=== PATIENT | female | born 1940 | race Caucasian/White ===

== ENCOUNTER 2021-03-10 16:37 | Inpatient (IN) | payer OTHER ==
[2021-03-10] MEDS ORDERED: PIPERACILLIN/TAZOB 3.375 GM 3.375 GM in DEXTROSE 5%-WATER - 50 ML IVPB ONE (18:23)
[2021-03-10] MEDS ORDERED: VANCOMYCIN 1 GM in D5W (PRE-DOCKED) 1,000 MG/250 ML IVPB ONE (18:23)
[2021-03-10] MEDS ORDERED: PIPERACILLIN/TAZOB 3.375 GM 3.375 GM/50 ML BAG IVPB ONE (18:29)
[2021-03-10 19:38] LABS: BASO % 1.2 % (0-2.0); EOS % 1.9 % (0-4.5); HEMATOCRIT 29.2 % (32.4-45.2); HEMOGLOBIN 9.3 GM/dL (10.7-15.3); LYMPH % 9.5 % (8-40); MCH 26.5 pg (25.7-33.7); MCHC 31.8 g/dl (32.0-36.0); MEAN CELL VOLUME 83.3 fl (80-96); MEAN PLT VOLUME 8.4 fl (7.5-11.1); MONO % 7.3 % (3.8-10.2); NEUT % 80.1 % (42.8-82.8); PLATELET COUNT 292 10^3/uL (134-434); RBC 3.51 M/mm3 (3.60-5.2); RDW 14.6 % (11.6-15.6); WHITE BLOOD COUNT 11.6 K/mm3 (4.0-10.0)
[2021-03-10 19:46] LABS: INR 1.21 (0.83-1.09)
[2021-03-10 19:49] LABS: ACTIVATED PTT 28.9 SECONDS (25.2-36.5)
[2021-03-10 21:30] LABS: ALBUMIN 3.4 g/dl (3.4-5.0); CALCIUM 9.4 mg/dL (8.5-10.1)
[2021-03-10 21:34] LABS: CREATININE 2.2 mg/dL (0.55-1.3)
[2021-03-10 21:35] LABS: BILIRUBIN,TOTAL 0.4 mg/dL (0.2-1)
[2021-03-10 21:41] LABS: BLOOD UREA NITROGEN 61.7 mg/dL (7-18)
[2021-03-11] MEDS ORDERED: HEPARIN NA (PORCINE) 5,000 UNITS/ML 1ML VIAL ONE ×2 (06:32→15:06)
[2021-03-11] MEDS ORDERED: PIPERACILLIN/TAZOB 2.25 GM 2.25 GM/50 ML BAG IVPB ONE ×3 (06:32→18:12)
[2021-03-11] MEDS ORDERED: CARBIDOPA/LEVODOPA 25/100 TABLET (FP) ONE ×2 (06:32→15:06)
[2021-03-11] MEDS: PIPERACILLIN/TAZOB 2.25 GM 2.25 GM in DEXTROSE 5%-WATER - 50 ML IVPB SCH ×3 (06:52→18:24)
[2021-03-11] MEDS: HEPARIN NA (PORCINE) 5,000 UNITS/ML 1ML VIAL SQ SCH ×2 (06:52→15:10)
[2021-03-11] MEDS: CARBIDOPA/LEVODOPA 25/100 TABLET (FP) PO SCH ×2 (06:52→15:10)
[2021-03-11] MEDS: INSULIN SLIDING SCALE (NOVOLOG) 1 VIAL SQ SCH ×3 (07:26→16:46)
[2021-03-11] MEDS ORDERED: TORSEMIDE 20 MG TABLET (FP) PO SCH (10:00)
[2021-03-11] MEDS ORDERED: TAMSULOSIN HCL 0.4 MG CAP ONE (10:53)
[2021-03-11] MEDS ORDERED: POLYETHYLENE GLYCOL (HEALTHYLAX) 3350 17 GM PACKET ONE (10:53)
[2021-03-11] MEDS: POLYETHYLENE GLYCOL (HEALTHYLAX) 3350 17 GM PACKET PO SCH (10:55)
[2021-03-11] MEDS: TAMSULOSIN HCL 0.4 MG CAP PO SCH (10:55)
[2021-03-11] MEDS: MEMANTINE HCL 10 MG TABLET (FP) PO SCH (10:55)
[2021-03-11] MEDS: SODIUM CHLORIDE 1,000 ML IV SCH (15:10)
[2021-03-11 16:46] LABS: URINE APPEARANCE CLEAR; URINE BILIRUBIN NEGATIVE (NEGATIVE); URINE COLOR YELLOW; URINE GLUCOSE (UA) NEGATIVE (NEGATIVE); URINE KETONE NEGATIVE (NEGATIVE); URINE LEUK ESTERASE NEGATIVE (NEGATIVE); URINE NITRITE NEGATIVE (NEGATIVE); URINE PROTEIN NEGATIVE (NEGATIVE); URINE UROBILINOGEN 0.2 mg/dL (0.2-1.0)
[2021-03-11] MEDS ORDERED: VANCOMYCIN 1 GM in D5W (PRE-DOCKED) 1,000 MG/250 ML IVPB SCH (20:00)
[2021-03-11] MEDS ORDERED: VANCOMYCIN 1 GRAM (PRE-DOCKED) 1,000 MG/250 ML BAG IVPB SCH (20:00)
[2021-03-12] MEDS: PIPERACILLIN/TAZOB 2.25 GM 2.25 GM in DEXTROSE 5%-WATER - 50 ML IVPB SCH ×4 (02:13→17:41)
[2021-03-12] MEDS: INSULIN SLIDING SCALE (NOVOLOG) 1 VIAL SQ SCH ×5 (02:13→22:20)
[2021-03-12] MEDS: SODIUM CHLORIDE 1,000 ML IV SCH (02:14)
[2021-03-12] MEDS ORDERED: PIPERACILLIN/TAZOBACTAM 2.25 GM VIAL IVPB ONE ×3 (02:41→17:39)
[2021-03-12] MEDS ORDERED: DEXTROSE 5%-WATER - 50 ML IVPB ONE ×3 (02:41→17:39)
[2021-03-12] MEDS: TAMSULOSIN HCL 0.4 MG CAP PO SCH ×3 (03:23→22:12)
[2021-03-12] MEDS: HEPARIN NA (PORCINE) 5,000 UNITS/ML 1ML VIAL SQ SCH ×4 (03:24→22:12)
[2021-03-12] MEDS: CARBIDOPA/LEVODOPA 25/100 TABLET (FP) PO SCH ×4 (03:25→22:12)
[2021-03-12] MEDS: VANCOMYCIN 1 GRAM (PRE-DOCKED) 1,000 MG/250 ML BAG IVPB SCH ×2 (03:34→22:15)
[2021-03-12 04:05] VITALS: BMI 27.3
[2021-03-12] MEDS: POLYETHYLENE GLYCOL (HEALTHYLAX) 3350 17 GM PACKET PO SCH (09:00)
[2021-03-12 09:59] LABS: BASO % 1.2 % (0-2.0); EOS % 3.8 % (0-4.5); HEMATOCRIT 27.5 % (32.4-45.2); HEMOGLOBIN 9.1 GM/dL (10.7-15.3); LYMPH % 12.7 % (8-40); MCH 27.2 pg (25.7-33.7); MEAN CELL VOLUME 82.3 fl (80-96); MEAN PLT VOLUME 8.3 fl (7.5-11.1); MONO % 6.2 % (3.8-10.2); NEUT % 76.1 % (42.8-82.8); PLATELET COUNT 311 10^3/uL (134-434); RBC 3.34 M/mm3 (3.60-5.2); RDW 14.3 % (11.6-15.6); WHITE BLOOD COUNT 9.1 K/mm3 (4.0-10.0)
[2021-03-12] MEDS ORDERED: PNEUMOC 13-VAL CONJ-DIP CRM/PF 0.5 ML DISP.SYRIN IM ONE (10:00)
[2021-03-12 10:16] LABS: BLOOD UREA NITROGEN 46.2 mg/dL (7-18); CALCIUM 8.7 mg/dL (8.5-10.1); MAGNESIUM 2.3 mg/dL (1.8-2.4)
[2021-03-12 10:19] LABS: CREATININE 2.1 mg/dL (0.55-1.3); PHOSPHOROUS 2.9 mg/dL (2.5-4.9); URIC ACID 9.1 mg/dL (2.6-7.2)
[2021-03-12] MEDS: MEMANTINE HCL 10 MG TABLET (FP) PO SCH (10:37)
[2021-03-12 11:33] LABS: ERYTHROCYTE SEDIMENTATION RATE 87 mm/hr (0-30)
[2021-03-12] MEDS: ACETAMINOPHEN 325 MG TABLET (FP) PO PRN (22:15)
[2021-03-13] MEDS ORDERED: PIPERACILLIN/TAZOBACTAM 2.25 GM VIAL IVPB ONE ×3 (00:53→16:40)
[2021-03-13] MEDS ORDERED: DEXTROSE 5%-WATER - 50 ML IVPB ONE ×3 (00:53→16:40)
[2021-03-13] MEDS: PIPERACILLIN/TAZOB 2.25 GM 2.25 GM in DEXTROSE 5%-WATER - 50 ML IVPB SCH ×3 (01:59→17:38)
[2021-03-13] MEDS: CARBIDOPA/LEVODOPA 25/100 TABLET (FP) PO SCH ×3 (05:31→21:35)
[2021-03-13] MEDS: HEPARIN NA (PORCINE) 5,000 UNITS/ML 1ML VIAL SQ SCH ×3 (05:32→21:34)
[2021-03-13] MEDS: INSULIN SLIDING SCALE (NOVOLOG) 1 VIAL SQ SCH ×4 (06:01→22:14)
[2021-03-13 08:00] LABS: BASO % 1.2 % (0-2.0); EOS % 4.3 % (0-4.5); HEMATOCRIT 28.1 % (32.4-45.2); LYMPH % 13.2 % (8-40); MCH 26.8 pg (25.7-33.7); MCHC 32.1 g/dl (32.0-36.0); MEAN CELL VOLUME 83.5 fl (80-96); MEAN PLT VOLUME 8.5 fl (7.5-11.1); NEUT % 75.3 % (42.8-82.8); PLATELET COUNT 314 10^3/uL (134-434); RBC 3.37 M/mm3 (3.60-5.2); RDW 14.2 % (11.6-15.6); WHITE BLOOD COUNT 9.5 K/mm3 (4.0-10.0)
[2021-03-13 08:26] LABS: BLOOD UREA NITROGEN 41.7 mg/dL (7-18); CALCIUM 8.3 mg/dL (8.5-10.1)
[2021-03-13 08:30] LABS: CREATININE 2.1 mg/dL (0.55-1.3)
[2021-03-13] MEDS: TAMSULOSIN HCL 0.4 MG CAP PO SCH ×2 (09:43→21:35)
[2021-03-13] MEDS: MEMANTINE HCL 10 MG TABLET (FP) PO SCH (09:43)
[2021-03-13] MEDS: POLYETHYLENE GLYCOL (HEALTHYLAX) 3350 17 GM PACKET PO SCH (09:43)
[2021-03-13] MEDS ORDERED: INSULIN (NOVOLOG) ASPART 100 UNITS/ML 10ML VIAL ONE ×2 (16:38→21:54)
[2021-03-13] MEDS: VANCOMYCIN 1 GRAM (PRE-DOCKED) 1,000 MG/250 ML BAG IVPB SCH (21:31)
[2021-03-14] MEDS ORDERED: PIPERACILLIN/TAZOBACTAM 2.25 GM VIAL IVPB ONE ×3 (01:29→17:13)
[2021-03-14] MEDS ORDERED: DEXTROSE 5%-WATER - 50 ML IVPB ONE ×3 (01:29→17:13)
[2021-03-14] MEDS: PIPERACILLIN/TAZOB 2.25 GM 2.25 GM in DEXTROSE 5%-WATER - 50 ML IVPB SCH ×3 (02:01→17:36)
[2021-03-14] MEDS: ACETAMINOPHEN 325 MG TABLET (FP) PO PRN ×2 (02:05→14:59)
[2021-03-14] MEDS: CARBIDOPA/LEVODOPA 25/100 TABLET (FP) PO SCH ×3 (06:16→21:44)
[2021-03-14] MEDS: HEPARIN NA (PORCINE) 5,000 UNITS/ML 1ML VIAL SQ SCH ×3 (06:16→21:44)
[2021-03-14] MEDS: INSULIN SLIDING SCALE (NOVOLOG) 1 VIAL SQ SCH ×4 (06:22→21:47)
[2021-03-14 09:21] LABS: CALCIUM 8.4 mg/dL (8.5-10.1)
[2021-03-14 09:22] LABS: BLOOD UREA NITROGEN 40.4 mg/dL (7-18)
[2021-03-14] MEDS: MEMANTINE HCL 10 MG TABLET (FP) PO SCH (10:35)
[2021-03-14] MEDS: POLYETHYLENE GLYCOL (HEALTHYLAX) 3350 17 GM PACKET PO SCH (10:35)
[2021-03-14] MEDS: TAMSULOSIN HCL 0.4 MG CAP PO SCH ×2 (10:35→21:44)
[2021-03-15] MEDS ORDERED: PIPERACILLIN/TAZOBACTAM 2.25 GM VIAL IVPB ONE ×3 (02:55→16:13)
[2021-03-15] MEDS ORDERED: DEXTROSE 5%-WATER - 50 ML IVPB ONE ×3 (02:55→16:13)
[2021-03-15] MEDS: PIPERACILLIN/TAZOB 2.25 GM 2.25 GM in DEXTROSE 5%-WATER - 50 ML IVPB SCH ×3 (02:58→18:03)
[2021-03-15] MEDS: HEPARIN NA (PORCINE) 5,000 UNITS/ML 1ML VIAL SQ SCH ×3 (05:17→21:57)
[2021-03-15] MEDS: CARBIDOPA/LEVODOPA 25/100 TABLET (FP) PO SCH ×3 (05:17→21:57)
[2021-03-15] MEDS: INSULIN SLIDING SCALE (NOVOLOG) 1 VIAL SQ SCH ×4 (06:26→21:35)
[2021-03-15 09:28] LABS: CHLORIDE 114 mmol/L (98-107); SODIUM 142 mmol/L (136-145)
[2021-03-15 09:31] LABS: ALBUMIN 2.9 g/dl (3.4-5.0); ANION GAP 7 MMOL/L (8-16); BLOOD UREA NITROGEN 36.7 mg/dL (7-18); CALCIUM 8.9 mg/dL (8.5-10.1); CO2 21 mmol/L (21-32); GLUCOSE,RANDOM 126 mg/dL (74-106)
[2021-03-15 09:34] LABS: PHOSPHOROUS 3.3 mg/dL (2.5-4.9); SGOT/AST 21 U/L (15-37); SGPT/ALT < 6 U/L (13-61)
[2021-03-15 09:35] LABS: CREATININE 1.9 mg/dL (0.55-1.3)
[2021-03-15 09:36] LABS: BILIRUBIN,TOTAL 0.2 mg/dL (0.2-1); TOT PROT 6.3 g/dl (6.4-8.2)
[2021-03-15 09:37] LABS: ALK PHOS 88 U/L (45-117)
[2021-03-15] MEDS: MEMANTINE HCL 10 MG TABLET (FP) PO SCH (09:52)
[2021-03-15] MEDS: TAMSULOSIN HCL 0.4 MG CAP PO SCH ×2 (09:52→21:57)
[2021-03-15] MEDS: POLYETHYLENE GLYCOL (HEALTHYLAX) 3350 17 GM PACKET PO SCH (09:53)
[2021-03-15] MEDS: VANCOMYCIN 1 GRAM (PRE-DOCKED) 1,000 MG/250 ML BAG IVPB SCH (16:22)
[2021-03-16] MEDS ORDERED: DEXTROSE 5%-WATER - 50 ML IVPB ONE ×2 (02:00→09:50)
[2021-03-16] MEDS ORDERED: PIPERACILLIN/TAZOBACTAM 2.25 GM VIAL IVPB ONE ×2 (02:00→09:50)
[2021-03-16] MEDS: PIPERACILLIN/TAZOB 2.25 GM 2.25 GM in DEXTROSE 5%-WATER - 50 ML IVPB SCH ×2 (02:23→09:57)
[2021-03-16] MEDS: HEPARIN NA (PORCINE) 5,000 UNITS/ML 1ML VIAL SQ SCH ×2 (05:18→13:50)
[2021-03-16] MEDS: CARBIDOPA/LEVODOPA 25/100 TABLET (FP) PO SCH ×2 (05:23→13:50)
[2021-03-16] MEDS: INSULIN SLIDING SCALE (NOVOLOG) 1 VIAL SQ SCH ×3 (06:47→16:40)
[2021-03-16] MEDS: TAMSULOSIN HCL 0.4 MG CAP PO SCH (09:58)
[2021-03-16] MEDS: MEMANTINE HCL 10 MG TABLET (FP) PO SCH (09:58)
[2021-03-16] MEDS: POLYETHYLENE GLYCOL (HEALTHYLAX) 3350 17 GM PACKET PO SCH (09:58)
[2021-03-16] MEDS ORDERED: TORSEMIDE 20 MG TABLET (FP) PO SCH (10:00)
[2021-03-16 14:26] VITALS: BP 116/54; PULSE 68; TEMP 98.1
[2021-03-16] MEDS: VANCOMYCIN 1 GRAM (PRE-DOCKED) 1,000 MG/250 ML BAG IVPB SCH (15:59)
== END 2021-03-16 17:51 | DRG 638 ==
LOC: JER 16:37 → JERBED 23:21 → J7W 03-12 01:36
PROVIDERS: ADMIT Internal Medicine; ATTEND Family Medicine
PROC: 02HV33Z Insertion of Infusion Device into Superior Vena Cava, Percutaneous Approach (ICD-10-PCS; principal; 2021-03-16)
PROC: B518ZZA Fluoroscopy of Superior Vena Cava, Guidance (ICD-10-PCS; 2021-03-16)
DX: E11.69 Type 2 diabetes mellitus with other specified complication (principal); L03.114 Cellulitis of left upper limb; M86.8X2 Other osteomyelitis, upper arm; E11.65 Type 2 diabetes mellitus with hyperglycemia; N17.9 Acute kidney failure, unspecified; M19.042 Primary osteoarthritis, left hand; F71 Moderate intellectual disabilities; F03.90 Unspecified dementia, unspecified severity, without behavioral disturbance, psychotic disturbance, mood disturbance, and anxiety; G20 Parkinson's disease; F32.9 Major depressive disorder, single episode, unspecified; I25.10 Atherosclerotic heart disease of native coronary artery without angina pectoris; F41.9 Anxiety disorder, unspecified; I12.9 Hypertensive chronic kidney disease with stage 1 through stage 4 chronic kidney disease, or unspecified chronic kidney disease; E11.22 Type 2 diabetes mellitus with diabetic chronic kidney disease; N18.9 Chronic kidney disease, unspecified; D72.829 Elevated white blood cell count, unspecified; I44.0 Atrioventricular block, first degree
CPT/HCPCS: 36415; 36569; 71045-TC-FY; 73130-TC-LT-FY; 73200-TC-RT; 76775-TC; 80048; 80053; 81003; 82570; 82962; 83605; 83735; 84100; 84156; 84300; 84550; 85025; 85610; 85651; 85730; 86140; 86850; 86900; 86901; 87040; 90670; 93005; 93010; 99285-25; C9803; G0480; J1644; U0003; U0005

== ENCOUNTER 2021-05-26 11:48 | Inpatient (IN) | payer OTHER ==
[2021-05-26] MEDS ORDERED: SODIUM CHLORIDE 0.9% 500 ML INFUS.BAG IV ONE (12:22)
[2021-05-26] MEDS ORDERED: ONDANSETRON 4 MG/2 ML VIAL ONE (12:23)
[2021-05-26] MEDS ORDERED: fentaNYL CITRATE 250 MCG/5 ML VIAL IVPUSH ONE (12:24)
[2021-05-26] MEDS ORDERED: FAMOTIDINE 10 MG/ML VIAL IVPB ONE (12:28)
[2021-05-26] MEDS ORDERED: ONDANSETRON 4 MG/2 ML VIAL IVPUSH ONE (12:29)
[2021-05-26] MEDS ORDERED: FAMOTIDINE 20 MG/50 ML IVPB 20 MG/50 ML MG IVPB ONE (12:29)
[2021-05-26] MEDS ORDERED: fentaNYL CITRATE 250 MCG/5 ML VIAL ONE (12:32)
[2021-05-26 13:17] LABS: VENOUS BASE EXCESS -16.2 mmol/L (-2-2); VENOUS O2 SATURATION 30.9 % (70-80)
[2021-05-26 13:19] LABS: BASO % 0.3 % (0-2.0); HEMATOCRIT 33.1 % (32.4-45.2); HEMOGLOBIN 10.5 GM/dL (10.7-15.3); LYMPH % 8.2 % (8-40); MCH 26.6 pg (25.7-33.7); MCHC 31.6 g/dl (32.0-36.0); MEAN CELL VOLUME 84.2 fl (80-96); MEAN PLT VOLUME 9.9 fl (7.5-11.1); MONO % 6.8 % (3.8-10.2); NEUT % 84.7 % (42.8-82.8); PLATELET COUNT 271 10^3/uL (134-434); RBC 3.93 M/mm3 (3.60-5.2); RDW 17.5 % (11.6-15.6); WHITE BLOOD COUNT 16.8 K/mm3 (4.0-10.0)
[2021-05-26] MEDS ORDERED: ATROPINE SULFATE 1 MG/10 ML DISP.SYRIN ONE ×2 (13:19→22:39)
[2021-05-26 13:24] LABS: VENOUS PH 7.178 (7.310-7.410)
[2021-05-26] MEDS ORDERED: SODIUM BICARBONATE 8.4% 50 MEQ/50 ML DISP.SYRIN IVPUSH ONE (13:26)
[2021-05-26] MEDS ORDERED: ATROPINE SULFATE 1 MG/10 ML DISP.SYRIN IVPUSH ONE ×2 (13:26→22:55)
[2021-05-26] MEDS ORDERED: CALCIUM GLUCONATE 10% - 1,000 MG/10 ML VIAL IVPUSH ONE (13:28)
[2021-05-26] MEDS ORDERED: CALCIUM GLUCONATE 10% - 1,000 MG/10 ML VIAL ONE (13:30)
[2021-05-26] MEDS ORDERED: SODIUM BICARBONATE 8.4% - 50 ML ONE (13:30)
[2021-05-26 13:42] LABS: CHLORIDE 98 mmol/L (98-107); SODIUM 136 mmol/L (136-145)
[2021-05-26 13:44] LABS: ANION GAP 25 MMOL/L (8-16); CALCIUM 9.2 mg/dL (8.5-10.1); CO2 13 mmol/L (21-32); GLUCOSE,RANDOM 134 mg/dL (74-106)
[2021-05-26 13:45] LABS: ALBUMIN 3.3 g/dl (3.4-5.0)
[2021-05-26 13:48] LABS: CREATININE 5.2 mg/dL (0.55-1.3); SGOT/AST 894 U/L (15-37); SGPT/ALT 347 U/L (13-61)
[2021-05-26 13:49] LABS: TOT PROT 6.8 g/dl (6.4-8.2)
[2021-05-26] MEDS ORDERED: DOPAMINE 400 MG/D5W - 400,000 MCG/250 ML INFUS.BAG IVPB ONE (13:49)
[2021-05-26 13:50] LABS: ALK PHOS 241 U/L (45-117)
[2021-05-26 13:51] LABS: BLOOD UREA NITROGEN 117.8 mg/dL (7-18)
[2021-05-26 13:56] LABS: LACTIC ACID 11.8 mmol/L (0.4-2.0)
[2021-05-26] MEDS ORDERED: LACTATED RINGERS SOLUTION 1000 ML INFUS.BAG IV ONE ×2 (13:58→15:12)
[2021-05-26] MEDS ORDERED: VANCOMYCIN 1 GM in D5W (PRE-DOCKED) 1,000 MG/250 ML IVPB ONE (14:27)
[2021-05-26] MEDS ORDERED: PIPERACILLIN/TAZOB 2.25 GM 2.25 GM in DEXTROSE 5%-WATER - 50 ML IVPB ONE (14:27)
[2021-05-26] MEDS ORDERED: DEXTROSE 5%-WATER - 1,000 ML with SODIUM BICARBONATE 8.4% - 150 MEQ IV SCH (15:15)
[2021-05-26] MEDS ORDERED: PIPERACILLIN/TAZOB 2.25 GM 2.25 GM/50 ML BAG IVPB ONE (15:19)
[2021-05-26] MEDS: DOPAMINE 400 MG/D5W - 400,000 MCG/250 ML INFUS.BAG IVPB SCH (16:26)
[2021-05-26] MEDS ORDERED: MELATONIN 5 MG TABLETS PO PRN (16:36)
[2021-05-26] MEDS ORDERED: LACTATED RINGERS SOLUTION 1,000 ML/1,000 ML INFUS.BAG IV SCH (17:00)
[2021-05-26] MEDS ORDERED: VANCOMYCIN 1 GM/200 ML PREMIX BAG IVPB ONE (18:15)
[2021-05-26 18:55] LABS: CHLORIDE 102 mmol/L (98-107); SODIUM 139 mmol/L (136-145)
[2021-05-26 18:57] LABS: CALCIUM 9.1 mg/dL (8.5-10.1)
[2021-05-26 18:58] LABS: ANION GAP 18 MMOL/L (8-16); CO2 19 mmol/L (21-32); GLUCOSE,RANDOM 50 mg/dL (74-106)
[2021-05-26 19:01] LABS: CREATININE 4.8 mg/dL (0.55-1.3)
[2021-05-26 19:33] LABS: BLOOD UREA NITROGEN 114.7 mg/dL (7-18)
[2021-05-26 19:46] VITALS: BMI 28.3
[2021-05-26 20:45] LABS: LACTIC ACID 3.5 mmol/L (0.4-2.0)
[2021-05-26] MEDS ORDERED: DEXTROSE 50%-WATER - 25 GM/50 ML VIAL IVPUSH PRN (21:41)
[2021-05-26] MEDS ORDERED: ACETAMINOPHEN 1000 MG/100 ML BAG IVPB PRN (21:41)
[2021-05-26] MEDS: SODIUM BICARBONATE 8.4% - 150 MEQ in DEXTROSE 5%-WATER - 1,000 ML IV SCH (21:44)
[2021-05-26] MEDS: HEPARIN NA (PORCINE) 5,000 UNITS/ML 1ML VIAL SQ SCH (21:45)
[2021-05-26] MEDS: CARBIDOPA/LEVODOPA 25/100 TABLET (FP) PO SCH (21:45)
[2021-05-26] MEDS: MUPIROCIN 2% TOPICAL OINTMENT FOR DECOLONIZATION NS SCH (21:46)
[2021-05-26] MEDS ORDERED: CHLORHEXIDINE GLUCONATE 4% CLEANSER FOR DECOLONIZATION TP SCH (22:00)
[2021-05-26] MEDS: INSULIN SLIDING SCALE (NOVOLOG) 1 VIAL SQ SCH (22:04)
[2021-05-26] MEDS ORDERED: MIDAZOLAM HCL 2 MG/2 ML SINGLE DOSE VIAL ONE (22:39)
[2021-05-27] MEDS: DOPAMINE 400 MG/D5W - 400,000 MCG/250 ML INFUS.BAG IVPB SCH ×3 (01:22→10:40)
[2021-05-27] MEDS ORDERED: ATROPINE SULFATE 1 MG/10 ML DISP.SYRIN IVPUSH ONE (01:43)
[2021-05-27] MEDS ORDERED: LACTATED RINGERS SOLUTION 1000 ML INFUS.BAG IV ONE ×2 (01:55→02:02)
[2021-05-27] MEDS ORDERED: MIDAZOLAM 100 MG in SODIUM CHLORIDE 100 ML IVPB SCH (02:00)
[2021-05-27] MEDS ORDERED: MIDAZOLAM IN 0.9 % SOD.CHLORID 100 MG/100 ML PLAST..BAG IVPB SCH (02:01)
[2021-05-27] MEDS ORDERED: MIDAZOLAM HCL 2 MG/2 ML SINGLE DOSE VIAL IVPUSH ONE (02:02)
[2021-05-27 03:04] LABS: EPI CELLS 7 /uL (0-25.1); HYALINE CASTS 9 /uL (0-3.1); URINE APPEARANCE CLOUDY; URINE BACTERIA 268 /uL (0-1359); URINE BILIRUBIN NEGATIVE (NEGATIVE); URINE COLOR YELLOW; URINE GLUCOSE (UA) NEGATIVE (NEGATIVE); URINE KETONE NEGATIVE (NEGATIVE); URINE LEUK ESTERASE 3+ (NEGATIVE); URINE NITRITE NEGATIVE (NEGATIVE); URINE PROTEIN 2+ (NEGATIVE); URINE RBC 14 /uL (0-23.9); URINE UROBILINOGEN 0.2 mg/dL (0.2-1.0); URINE WBC 744 /uL (0-25.8)
[2021-05-27] MEDS ORDERED: CEFTRIAXONE 1 GM in DEXTROSE 5%-WATER - 50 ML IVPB ONE ×2 (03:15→04:00)
[2021-05-27 03:24] LABS: CHLORIDE 99 mmol/L (98-107); SODIUM 136 mmol/L (136-145)
[2021-05-27 03:26] LABS: CALCIUM 8.2 mg/dL (8.5-10.1)
[2021-05-27 03:27] LABS: ALBUMIN 3.1 g/dl (3.4-5.0); ANION GAP 25 MMOL/L (8-16); CO2 12 mmol/L (21-32); GLUCOSE,RANDOM 200 mg/dL (74-106); MAGNESIUM 2.5 mg/dL (1.8-2.4)
[2021-05-27 03:30] LABS: PHOSPHOROUS 7.8 mg/dL (2.5-4.9)
[2021-05-27 03:31] LABS: BILIRUBIN,TOTAL 0.7 mg/dL (0.2-1)
[2021-05-27 03:32] LABS: TOT PROT 5.9 g/dl (6.4-8.2)
[2021-05-27] MEDS ORDERED: DEXTROSE 5%-WATER - 50 ML IVPB ONE (04:10)
[2021-05-27] MEDS ORDERED: cefTRIAXone SODIUM 1 GM VIAL ONE (04:10)
[2021-05-27 04:34] LABS: ALK PHOS 207 U/L (45-117); BLOOD UREA NITROGEN 116.7 mg/dL (7-18); SGOT/AST 5223 U/L (15-37); SGPT/ALT 1093 U/L (13-61)
[2021-05-27] MEDS: HEPARIN NA (PORCINE) 5,000 UNITS/ML 1ML VIAL SQ SCH (05:44)
[2021-05-27] MEDS: CARBIDOPA/LEVODOPA 25/100 TABLET (FP) PO SCH (05:45)
[2021-05-27] MEDS: INSULIN SLIDING SCALE (NOVOLOG) 1 VIAL SQ SCH (06:02)
[2021-05-27] MEDS ORDERED: LEVOTHYROXINE NA 25 MCG TABLET (FP) PO SCH (07:00)
[2021-05-27 07:50] LABS: CHLORIDE 97 mmol/L (98-107); SODIUM 134 mmol/L (136-145)
[2021-05-27 07:53] LABS: ANION GAP 21 MMOL/L (8-16); CO2 15 mmol/L (21-32)
[2021-05-27 07:55] LABS: CALCIUM 8.2 mg/dL (8.5-10.1)
[2021-05-27 07:56] LABS: MAGNESIUM 2.4 mg/dL (1.8-2.4)
[2021-05-27 07:57] LABS: CREATININE 4.9 mg/dL (0.55-1.3)
[2021-05-27 08:01] LABS: GLUCOSE,RANDOM 220 mg/dL (74-106)
[2021-05-27 08:02] LABS: ALBUMIN 3.1 g/dl (3.4-5.0); BILIRUBIN,TOTAL 0.8 mg/dL (0.2-1)
[2021-05-27 08:04] LABS: ALK PHOS 212 U/L (45-117); CHOLESTEROL 145 mg/dL (50-200); HDL CHOLESTEROL 76 mg/dL (40-60); PHOSPHOROUS 7.2 mg/dL (2.5-4.9); TRIGLYCERIDES 92 mg/dL (0-150)
[2021-05-27 08:05] LABS: LDL CHOLESTEROL (ONLY SJRH) 68 mg/dL (5-100)
[2021-05-27] MEDS ORDERED: ACETAMINOPHEN 1000 MG/100 ML BAG IVPB PRN (08:05)
[2021-05-27 08:09] LABS: BLOOD UREA NITROGEN 113.8 mg/dL (7-18); SGPT/ALT 1641 U/L (13-61)
[2021-05-27 08:28] LABS: HEMATOCRIT 32.5 % (32.4-45.2); HEMOGLOBIN 10.5 GM/dL (10.7-15.3); MCH 27.1 pg (25.7-33.7); MCHC 32.4 g/dl (32.0-36.0); MEAN CELL VOLUME 83.6 fl (80-96); PLATELET COUNT 266 10^3/uL (134-434); RBC 3.89 M/mm3 (3.60-5.2); RDW 17.5 % (11.6-15.6); SGOT/AST 5804 U/L (15-37)
[2021-05-27] MEDS: MUPIROCIN 2% TOPICAL OINTMENT FOR DECOLONIZATION NS SCH (09:50)
[2021-05-27] MEDS ORDERED: MEMANTINE HCL 10 MG TABLET (FP) PO SCH (10:00)
[2021-05-27] MEDS ORDERED: TORSEMIDE 20 MG TABLET (FP) PO SCH (10:00)
[2021-05-27 10:16] VITALS: TEMP 99
[2021-05-27 10:41] VITALS: BP 144/108; PULSE 44
[2021-05-27] MEDS: SODIUM BICARBONATE 8.4% - 150 MEQ in DEXTROSE 5%-WATER - 1,000 ML IV SCH (10:41)
[2021-05-27 10:53] LABS: ANISOCYTOSIS 0; MACROCYTOSIS 0; TEAR DROP CELLS 1+
[2021-06-01 12:05] LABS: WHITE BLOOD COUNT 31.4 K/mm3 (4.0-10.0)
== END 2021-05-27 11:29 | disposition expired | DRG 872 ==
LOC: JER 11:48 → JERBED 14:33 → JICU 16:14
PROVIDERS: ADMIT Family Medicine; ATTEND Family Medicine
PROC: 05HM33Z Insertion of Infusion Device into Right Internal Jugular Vein, Percutaneous Approach (ICD-10-PCS; principal; 2021-05-26)
DX: A41.9 Sepsis, unspecified organism (principal); I44.2 Atrioventricular block, complete; N17.9 Acute kidney failure, unspecified; E87.2 Acidosis; N39.0 Urinary tract infection, site not specified; F03.91 Unspecified dementia, unspecified severity, with behavioral disturbance; G20 Parkinson's disease; E11.22 Type 2 diabetes mellitus with diabetic chronic kidney disease; I12.9 Hypertensive chronic kidney disease with stage 1 through stage 4 chronic kidney disease, or unspecified chronic kidney disease; K76.9 Liver disease, unspecified; N18.9 Chronic kidney disease, unspecified; I25.10 Atherosclerotic heart disease of native coronary artery without angina pectoris; D72.829 Elevated white blood cell count, unspecified; F41.9 Anxiety disorder, unspecified; E87.5 Hyperkalemia; R45.1 Restlessness and agitation; I46.9 Cardiac arrest, cause unspecified; R74.01 Elevation of levels of liver transaminase levels
CPT/HCPCS: 36415; 70450-TC; 71045-TC-FY; 72125-TC; 74176-TC; 76937; 80048; 80053; 80061; 81003; 82550; 82553; 82803; 82962; 83605; 83690; 83735; 84100; 84439; 84443; 84484; 85025; 86850; 86900; 86901; 87040; 87086; 87186; 93005; 93010; 93306-TC; 99291; 99292; J1644